=== PATIENT | male | born 1985 | race Caucasian/White ===

== ENCOUNTER 2019-08-02 16:37 | Emergency (ER) | payer SELFPAY ==
[~2019-08-02] VITALS: Ht 175.3 cm; Wt 77.6 kg
[2019-08-02 17:49] VITALS: Ht 175.3 cm; Wt 77.6 kg
[2019-08-02 20:31] VITALS: BP 127/94
== END 2019-08-02 20:31 | disposition home or self-care (01) ==
LOC: ED 16:37
DX: L03.115 Cellulitis of right lower limb (principal); F17.210 Nicotine dependence, cigarettes, uncomplicated; W57.XXXA Bitten or stung by nonvenomous insect and other nonvenomous arthropods, initial encounter; Y93.89 Activity, other specified; Y92.89 Other specified places as the place of occurrence of the external cause; Y99.8 Other external cause status

== ENCOUNTER 2019-08-04 09:42 | Emergency (ER) | payer SELFPAY ==
[~2019-08-04] VITALS: Ht 175.3 cm; Wt 77.6 kg
[2019-08-04 10:01] VITALS: BP 124/84; Ht 175.3 cm; Wt 77.6 kg
== END 2019-08-04 11:06 | disposition home or self-care (01) ==
LOC: ED 09:42
DX: L03.115 Cellulitis of right lower limb (principal)

== ENCOUNTER 2019-08-13 19:28 | Emergency (ER) | payer MEDICAID ==
[~2019-08-13] VITALS: Ht 175.3 cm; Wt 80.7 kg
[2019-08-13 19:56] VITALS: Ht 175.3 cm; Wt 80.7 kg
[2019-08-13 21:02] VITALS: BP 134/89
== END 2019-08-13 21:02 | disposition home or self-care (01) ==
LOC: ED 19:28
DX: M79.604 Pain in right leg (principal); Z48.01 Encounter for change or removal of surgical wound dressing

== ENCOUNTER 2020-02-01 16:33 | Emergency (ER) | payer OTHER ==
[~2020-02-01] VITALS: Ht 175.3 cm; Wt 74.4 kg
[2020-02-01 16:42] VITALS: BP 128/91; Ht 175.3 cm; Wt 74.4 kg
== END 2020-02-01 18:08 | disposition home or self-care (01) ==
LOC: ED 16:33
DX: S61.211A Laceration without foreign body of left index finger without damage to nail, initial encounter (principal); W23.0XXA Caught, crushed, jammed, or pinched between moving objects, initial encounter; Y93.89 Activity, other specified; Y92.89 Other specified places as the place of occurrence of the external cause; Y99.8 Other external cause status
CPT/HCPCS: 90715; Q0092

== ENCOUNTER 2020-02-03 17:26 | Emergency (ER) | payer OTHER ==
[~2020-02-03] VITALS: Ht 175.3 cm; Wt 74.8 kg
[2020-02-03 17:35] VITALS: BP 135/86; Ht 175.3 cm; Wt 74.8 kg
== END 2020-02-03 17:54 | disposition home or self-care (01) ==
LOC: ED 17:26
DX: S61.211D Laceration without foreign body of left index finger without damage to nail, subsequent encounter (principal); X58.XXXD Exposure to other specified factors, subsequent encounter

== ENCOUNTER 2020-02-08 18:47 | Emergency (ER) | payer OTHER ==
[~2020-02-08] VITALS: Ht 175.3 cm; Wt 75.3 kg
[2020-02-08 18:54] VITALS: BP 126/80; Ht 175.3 cm; Wt 75.3 kg
== END 2020-02-08 19:23 | disposition home or self-care (01) ==
LOC: ED 18:47
DX: S61.211D Laceration without foreign body of left index finger without damage to nail, subsequent encounter (principal); X58.XXXD Exposure to other specified factors, subsequent encounter